=== PATIENT | female | born 1950 | race Caucasian/White ===

== ENCOUNTER → 2017-02-06 | Day surgery (SDC) | payer OTHER ==
[~2017-02-06] MED LIST: ACETAMINOPHEN 1000 MG/100 ML 100 ML IV ONE; BUPIVACAINE/EPINEPHRINE 0.25% PF 10 ML VIAL INFIL ONE; CALC500T21 PO; CEPH500; CLINDAMYCIN PHOS 900 MG/6 ML VIAL ONE; CYCL1PAK PO; HYDR-2768 PO; HYDR10SO PO; LACTATED RINGER'S 1000 ML INJ 1,000 ML ONE; LEVO150T7 PO; LISI30TA44 PO; METF500 PO; METO100T PO; METO50TA PO; MIDAZOLAM HCL 2 MG/2 ML VIAL ONE; ONDANSETRON HCL 4 MG/2 ML VIAL IV PUSH ONE; PROPOFOL 200 MG/20 ML AMP IV ONE; RANI150T PO; STOO100T PO; oxyCODONE/ACETAMINOPHEN 5 MG/325 MG TAB ONE
--- NOTE | 2017-02-06 11:40 | TN ---
cc: BRYCE MURPHY MD DATE OF SURGERY 02/06/2017 PREOPERATIVE DIAGNOSIS Left axillary abscess. POSTOPERATIVE DIAGNOSIS Left axillary abscess, left axillary lymphadenitis. PROCEDURE Incision and drainage of left axillary abscess. SURGEON Bryce Murphy MD [employer] Staff ANESTHESIA General anesthesia COMPLICATIONS None SPECIMEN Wound culture is sent to pathology ESTIMATED BLOOD LOSS 10 cc OPERATIVE FINDINGS The patient had fairly a large abscess in the left axilla. However, there was a large amount of remaining indurated tissue which appears to be infected and inflamed lymph nodes. I opted to drain the purulent fluid as well as possible without excision of this indurated lymphatic tissue as I feeling it would cause further problems with seroma and concern for lymphedema. PROCEDURE IN DETAIL The patient was taken to the operating room, placed in the supine position. The left axilla was prepped and draped in the usual sterile fashion and a surgical time-out was performed to verify correct patient, procedure and site. She received clindamycin preoperatively. Local anesthetic injected in the skin and subcutaneous tissue approximately at the inferior hairline in the left axilla. There was about a baseball size area of induration and two separate areas where there was erythema and fluctuance. The larger area was inferiorly and I made this curvilinear incision. A fair amount of purulent fluid was drained. There were further pockets that had to be accessed bluntly. There was quite a bit of remaining indurated tissue which I think was related to both indurated fat, as well as probably lymphadenitis. I decided not to excise a large amount of tissue in this infected field. There was an area of drainage more superiorly and I made a smaller 2 cm incision at this site and these two abscess cavities did join. I irrigated the entire abscess cavity copiously with a mixture of hydrogen peroxide and normal saline. Hemostasis was achieved. I placed a small Mitesh drain through the abscess cavity and out each incision and completed the loop by securing it with a 2-0 silk suture tie. I placed packing of 3-inch Tylor in the larger of cavity inferiorly and covered with a dry dressing. The patient tolerated the procedure well and was extubated and taken to PACU in stable condition. MD BRITTANI Russo/LOUIS Charlton: 02/06/2017/11:21 AM /11:31 AM
== END | disposition home or self-care (01) ==
LOC: ESDC 07:33
PROVIDERS: ATTEND Surgery
DX: L02.412 Cutaneous abscess of left axilla (principal); B95.62 Methicillin resistant Staphylococcus aureus infection as the cause of diseases classified elsewhere
CPT/HCPCS: 00400; 10061; 86403; 87015; 87070; 87116; 87186; 87205; 87206; J0131; J2250; J2405; J3010; J7120